=== PATIENT | female | born 1970 | race Caucasian/White ===

== ENCOUNTER 2018-10-31 08:55 | Emergency (ER) | payer OTHER ==
[~2018-10-31] VITALS: Ht 157.5 cm; Wt 113.5 kg
[2018-10-31 09:00] VITALS: BP 159/90; PULSE 80; RESP 16; Ht 157.5 cm; Wt 113.5 kg
[2018-10-31] MEDS ORDERED: KETOROLAC 60 MG INJ IM STA (09:42)
[2018-10-31] MEDS ORDERED: HYDR-4011 PO (09:47)
[2018-10-31] MEDS ORDERED: NAPR-985 PO (09:47)
[2018-10-31] MEDS ORDERED: CYCL10TA7 PO (09:47)
[2018-10-31] MEDS ORDERED: DEXAMETHASONE 10 MG/ML 1 ML INJ IM ONE (10:00)
--- NOTE | 2018-10-31 11:41 | ERD ---
ER Documentation Chief Complaint Chief Complaint lower back pain radaiting to rt leg HPI 48-year-old female presenting with lower back pain radiating to her right leg. Patient states she has had a long history of back pain in the past. She states that she is taken pain medication in the past which is alleviated her symptoms. She denies any abdominal pain. Denies any recent traumatic injuries. She states her pain is worse with movement. Has a medical history of DJD with osteoarthritis. Medical history denies. Surgical history gastric bypass and tubal ligation. Social history denies ROS All systems reviewed and are negative except as per history of present illness. Medications Home Meds Active Scripts Cyclobenzaprine Hcl* (Cyclobenzaprine Hcl*) 10 Mg Tablet, 10 MG PO TID, #15 TAB Prov:SHALONDA COLLADO PA-C 10/31/18 Hydrocodone/Acetaminophen ([place] 5-325 Tablet) 1 Each Tablet, 1 TAB PO Q6H PRN for PAIN, #7 TAB Prov:SHALONDA COLLADO PA-C 10/31/18 Naproxen* (Naprosyn*) 500 Mg Tablet, 500 MG PO BID PRN for PAIN AND/OR INFLAMMATION, #30 TAB Prov:SHALONDA COLLADO PA-C 10/31/18 Allergies Allergies: Coded Allergies: No Known Allergy (Unverified , 10/31/18) PMhx/Soc Hx Alcohol Use: No Hx Substance Use: No Hx Tobacco Use: Yes Smoking Status: Former smoker FmHx Family History: No diabetes, No coronary disease, No other Physical Exam Vitals Vital Signs Date Temp Pulse Resp B/P (MAP) Pulse Ox O2 O2 Flow FiO2 Time Delivery Rate 10/31/18 98.1 80 16 159/90 96 09:00 (113) Physical Exam GENERAL: The patient is well-appearing, well-nourished, in no acute distress CHEST: Clear to auscultation bilaterally. There are no rales, wheezes or rhonchi. HEART: Regular rate and rhythm. No murmurs, clicks, rubs or gallops. BACK: No midline or flank tenderness. Palpation over right side of the lumbar spine. She has pain radiating down her right leg EXTREMITIES: Equal pulses bilaterally. There is no peripheral clubbing, cyanosis or edema. No focal swelling or erythema. Full range of motion. Sosa ssly neurovascularly intact. NEUROLOGIC: Alert and oriented. Cranial nerves II through XII intact. Motor strength in all 4 extremities with 5 out of 5 strength. Sensation grossly intact. Normal speech and gait. SKIN: There is no apparent rash or petechiae. The skin is warm and dry. Results 24 hrs Current Medications Medications Dose Sig/Marly Start Time Status Last (Trade) Ordered Route PRN Stop Time Admin Dose Reason Admin 10 mg ONCE ONCE 10/31/18 DC 10/31/18 Dexamethasone IM 10:00 09:50 (Decadron) 10/31/18 10:01 Ketorolac 60 mg ONCE STAT 10/31/18 DC 10/31/18 Tromethamine IM 09:42 09:50 (Toradol) 10/31/18 09:43 Procedures/MDM ER course: Toradol and Decadron given ED. MDM: 48-year-old female presenting with back pain. Patient symptoms are likely associated with musculoskeletal strain versus nerve impingement. I have low suspicion for acute fracture dislocation I do not feel there is indication for imaging or blood work at this time. Patient is discharged with strict ER precautions and told to follow-up with primary care within 1-2 days for close evaluation. All questions answered at discharge Departure Diagnosis: Primary Impression: Back pain Condition: Stable Patient Instructions: Back Pain (Acute Or Chronic) Referrals: [facility] YOU HAVE RECEIVED A MEDICAL SCREENING EXAM AND THE RESULTS INDICATE THAT YOU DO NOT HAVE A CONDITION THAT REQUIRES URGENT TREATMENT IN THE EMERGENCY DEPARTMENT. FURTHER EVALUATION AND TREATMENT OF YOUR CONDITION CAN WAIT UNTIL YOU ARE SEEN IN YOUR DOCTORS OFFICE WITHIN THE NEXT 1-2 DAYS. IT IS YOUR RESPONSIBILITY TO MAKE AN APPOINTMENT FOR FOLOW-UP CARE. IF YOU HAVE A PRIMARY DOCTOR --you should call your primary doctor and schedule an appointment IF YOU DO NOT HAVE A PRIMARY DOCTOR YOU CAN CALL OUR PHYSICIAN REFERRAL HOTLINE AT IF YOU CAN NOT AFFORD TO SEE A PHYSICIAN YOU CAN CHOSE FROM THE FOLLOWING [facility] [address] [facility] [address] [facility] [address] [facility] [address] [facility]. [facility] [address] [facility]. [facility] [address] Additional Instructions: FOLLOW UP WITH YOUR PRIMARY CARE PHYSICIAN TOMORROW.Return to this facility if you are not improving as expected. SHALONDA COLLADO PA-C Oct 31, 2018 11:41
== END 2018-10-31 10:11 | disposition home or self-care (01) ==
LOC: EEVIPCON 08:55 → FTE 08:55 → MERGE 08:55 → FTE 10:11
DX: M54.5 Low back pain (principal); Z87.891 Personal history of nicotine dependence
CPT/HCPCS: J1100; J1885; 96372

== ENCOUNTER 2019-01-07 23:28 | Emergency (ER) | payer BC, OTHER ==
[~2019-01-07] VITALS: Ht 160 cm; Wt 112.8 kg
[~2019-01-07 23:28] MED LIST: CYCL10TA7 PO; HYDR-4011 PO; NAPR-985 PO
[2019-01-07 23:32] VITALS: BP 120/82; PULSE 97; RESP 18; Ht 160 cm; Wt 112.8 kg
[2019-01-08] MEDS ORDERED: KETOROLAC 30 MG INJ IM STA (00:15)
[2019-01-08] MEDS ORDERED: HYDROCODONE/APAP (5/325) TAB PO ONE (00:30)
[2019-01-08] MEDS ORDERED: IBUP800T48 PO (01:44)
[2019-01-08] MEDS ORDERED: HYDR-4011 PO (01:44)
[2019-01-08] MEDS ORDERED: CYCL10TA7 PO (01:45)
--- NOTE | 2019-01-08 01:47 | ERD ---
ER Documentation Chief Complaint Chief Complaint pain right upper arm, states was pulling blind around 12n, heard "pop" HPI 48-year-old female who presents with right upper arm pain that began today at around noon when she went to pull down a blind while standing in an awkward position and heard a pop around her distal humeral area. She now has pain in the right upper extremity with limited range of motion in her shoulder secondary to the pain. No numbness or tingling. No fever or recent illness. She is right-hand dominant. ROS All systems reviewed and are negative except as per history of present illness. Medications Home Meds Active Scripts Cyclobenzaprine Hcl* (Cyclobenzaprine Hcl*) 10 Mg Tablet, 10 MG PO TID, #15 TAB Prov:HERNAN CUNNINGHAM PA-C 01/08/19 Hydrocodone/Acetaminophen ([place] 5-325 Tablet) 1 Each Tablet, 1 EACH PO Q6, #15 TAB Prov:HERNAN CUNNINGHAM PA-C 01/08/19 Ibuprofen* (Motrin*) 800 Mg Tab, 800 MG PO Q6, #30 TAB Prov:HERNAN CUNNINGHAM PA-C 01/08/19 Cyclobenzaprine Hcl* (Cyclobenzaprine Hcl*) 10 Mg Tablet, 10 MG PO TID, #15 TAB Prov:SHALONDA COLLADO PA-C 10/31/18 Hydrocodone/Acetaminophen ([place] 5-325 Tablet) 1 Each Tablet, 1 TAB PO Q6H PRN for PAIN, #7 TAB Prov:SHALONDA COLLADO PA-C 10/31/18 Naproxen* (Naprosyn*) 500 Mg Tablet, 500 MG PO BID PRN for PAIN AND/OR INFLAMMATION, #30 TAB Prov:SHALONDA COLLADO PA-C 10/31/18 Allergies Allergies: Coded Allergies: No Known Allergy (Unverified , 11/01/18) PMhx/Soc Hx Alcohol Use: No Hx Substance Use: No Hx Tobacco Use: Yes Smoking Status: Never smoker FmHx Family History: No diabetes Physical Exam Vitals Vital Signs Date Temp Pulse Resp B/P (MAP) Pulse Ox O2 O2 Flow FiO2 Time Delivery Rate 01/07/19 98.0 97 18 120/82 96 23:32 (95) Physical Exam Const: No acute distress Head: Atraumatic Resp: Clear to auscultation bilaterally Cardio: Regular rate and rhythm, no murmurs Upper Extremity -right: Skin: No laceration, or evidence of external trauma Compartments: Soft Motor: Limited range of motion in shoulder secondary to pain Sensation: Intact shoulder/pinky/middle finger/thumb web space Bones: Nontender humerus/elbow/forearm/wrist/hand Snuffbox: Nontender Joints: No effusion Pulses/Perfusion: 2+ radial, Capillary refill < 2 seconds Results 24 hrs Current Medications Medications Dose Sig/Marly Start Time Status Last (Trade) Ordered Route PRN Stop Time Admin Dose Reason Admin 1 tab ONCE ONCE 01/08/19 DC 01/08/19 Acetaminophen PO 00:30 00:55 / 01/08/19 00:31 Hydrocodone Bitart ([place] (5/325)) Ketorolac 30 mg ONCE STAT 01/08/19 DC 01/08/19 Tromethamine IM 00:15 00:56 (Toradol) 01/08/19 00:17 Procedures/MDM Right shoulder and humerus x-rays are negative. She is neurovascularly intact. She is in a sling for comfort. She was given Toradol and [place] here prescription for ibuprofen Flexeril and [place]. If her symptoms do not resolve she should follow-up with primary care doctor for possible outpatient referral to get an MRI. Patient counseled regarding my diagnostic impression and care plan. Prior to discharge all questions answered. Pt agrees with treatment plan and understands strict return precautions. Pt is instructed to follow up with primary care provider within 24-48 hours. Precautionary instructions provided including instructions to return to the ER if not improving or for any worsening or changing symptoms or concerns. Departure Diagnosis: Primary Impression: Pain of right arm Condition: Stable Patient Instructions: Myalgias Additional Instructions: Call your primary care doctor TOMORROW for an appointment during the next 1-2 days.See the doctor sooner or return here if your condition worsens before your appointment time. HERNAN CUNNINGHAM PA-C January 08, 2019 01:47
== END 2019-01-08 02:03 | disposition home or self-care (01) ==
LOC: FTE 23:28
DX: M79.601 Pain in right arm (principal)
CPT/HCPCS: 73030; 73060; 96372; 99284; J1885

== ENCOUNTER → 2019-04-19 | Outpatient (CLI) | payer BC ==
[~2019-04-19] MED LIST changes: +IBUP800T48 PO
== END | disposition home or self-care (01) ==
LOC: LAB 04-18 14:44
PROVIDERS: ATTEND Surgery
DX: E66.09 Other obesity due to excess calories (principal)